=== PATIENT | female | born 1955 | race Two or more races ===

== ENCOUNTER 2024-07-29 08:43 | Inpatient (IN) | payer MEDICARE, OTHER ==
[~2024-07-29] VITALS: Ht 160 cm; Wt 78.2 kg
--- NOTE | 2024-07-29 09:05 | ED.PDOC ---
History of Present Illness HPI Comments 69-year-old female came to the ER stating that she has been having diarrhea since yesterday with vomiting which started this morning. Patient states that diarrhea is dark colored. Blood pressure on arrival was 95/55. Patient on July 23 fell landing on her back hitting her head. Never seen a physician f or the fall. She is having back pain since she had the fall. She does not take any nonsteroidal anti-inflammatory medication. Dark stool he has incidental. History of hypertension diabetes. Denies any other symptoms. Time Seen by MD: 08:55 Reviewed Notes: Nurses Notes, Medications, Allergies Allergies: Coded Allergies: NO KNOWN ALLERGIES (Unverified , 07/29/24) Information Source: Patient Mode of Arrival: Ambulatory Severity: Moderate Past Medical History PAST MEDICAL HISTORY: DM, HTN Surgical History: Denies all surgeries JOCKEY'S AGENT History: No Pertinent JOCKEY'S AGENT History Social History Smoker: Non-Smoker Alcohol: Denies ETOH Use Drugs: Denies Drug Use Constitutional: denies: chills, diaphoresis, fatigue, fever, malaise, sweats, weakness, others EENTM: denies: blurred vision, double vision, ear bleeding, ear discharge, ear drainage, ear pain, ear ringing, eye pain, eye redness, hearing loss, mouth pain, mouth swelling, nasal discharge, nose bleeding, nose congestion, nose pain, photophobia, tearing, throat pain, throat swelling, voice changes, others Respiratory: denies: cough, hemoptysis, orthopnea, SOB at rest, shortness of breath, SOB with excertion, stridor, wheezing, others Cardiovascular: denies: chest pain, dizzy spells, diaphoresis, Dyspnea on exertion, edema, irregular heart beat, left arm pain, lightheadedness, palpitations, PND, syncope, others Gastrointestinal: reports: diarrhea, nausea, vomiting; denies: abdomen distende d, abdominal pain, blood streaked bowels, constipated, dysphagia, difficulty swallowing, hematemesis, melena, poor appetite, poor fluid intake, rectal bleeding, rectal pain, others Genitourinary: denies: abnormal vagina bleeding, burning, dyspareunia, dysuria, flank pain, frequency, hematuria, incontinence, pain, , vagina discharge, urgency, others Neurological: denies: dizziness, fainting, headache, left sided numbness, left sided weakness, numbness, paresthesia, pre-existing deficit, right sided numbness, right sided weakness, seizure, speech problems, tingling, tremors, weakness, others Musculoskeletal: denies: back pain, gout, joint pain, joint swelling, muscle pain, muscle stiffness, neck pain, others Integumetry: denies: bruises, change in color, change in hair/nails, dryness, laceration, lesions, lumps, rash, wounds, others Hematologic/Lymphatic: denies: anemia, blood clots, easy bleeding, easy bruising, swollen glands, others Endocrine: denies: excessive hunger, excessive sweating, excessive thirst, excessive urination, flushing, intolerance to cold, intolerance to heat, unexplained weight gain, unexplained weight loss, others Psychiatric: denies: anxiety, bipolar disorder, depression, hopeless, panic disorder, schizophrenia, sleepless, suicidal, others Physical Exam General Appearance: Moderate Distress HEENT: Normal ENT Inspection, Pharynx Normal, TMs Normal Neck: Full Range of Motion, Non-Tender, Normal, Normal Inspection Respiratory: Chest Non-Tender, Lungs Clear, No Accessory Muscle Use, No R espiratory Distress, Normal Breath Sounds Cardiovascular: No Edema, No JVD, No Murmur, No Gallop, Normal Peripheral Pulses, Regular Rate/Rhythm Breast Exam: Deferred Gastrointestinal: No Organomegaly, Non Tender, No Pulsatile Mass, Normal Bowel Sounds, Soft Genitalia: Deferred Pelvic: Deferred Rectal: Deferred Extremities: No calf tenderness, Normal capillary refill, Normal inspection, Normal range of motion, Non-tender, No pedal edema Musculoskeletal : Apperance: Normal Neurologic: Alert, extrusion supervisor II-XII nml as Tested, No Motor Deficits, Normal Affect, Normal Mood, No Sensory Deficits Cerebellar Function: Normal Reflexes: Normal Skin: Dry, Normal Color, Warm Peripheral Pulses: 3+ Radial (R), 3+ Radial (L) Lymphatic: No Adenopathy Was a procedure done? Was a procedure done?: No Differential Dx Considerations may include: Gastroenteritis Electrolyte imbalance X-Ray, Labs, Meds, VS Vital Signs Date Time Temp Pulse Resp B/P (MAP) Pulse Ox O2 Delivery O2 Flow Rate FiO2 07/29/24 12:00 68 16 105/48 (67) 97 07/29/24 11:00 67 19 106/43 (64) 97 07/29/24 09:31 96 19 112/55 (74) 97 07/29/24 08:53 97.2 91 16 95/55 (68) 97 Lab Test 07/29/24 09:13 07/29/24 08:56 Range/Units White Blood Count 5.9 4.4-10.8 10^3/uL Red Blood Count 3.44 L 4.0-5.20 10^6/uL Hemoglobin 11.2 L 12.2-16.2 g/dL Hematocrit 32.3 L 36.0-46.0 % Mean Corpuscular Volume 93.9 80.0-100.0 fL Mean Corpuscular Hemoglobin 32.4 H 28.0-32.0 pg Mean Corpuscular Hemoglobin Concent 34.5 32.0-36.0 g/dL Red Cell Distribution Width 13.9 11.8-14.3 % Platelet Count 210 140-450 10^3/uL Mean Platelet Volume 8.9 6.9-10.8 fL Neutrophils (%) (Auto) 84.3 H 37.0-80.0 % Lymphocytes (%) (Auto) 10.7 10.0-50.0 % Monocytes (%) (Auto) 4.7 0.0-12.0 % Eosinophils (%) (Auto) 0.1 0.0-7.0 % Basophils (%) (Auto) 0.2 0.0-2.0 % Neutrophils # (Auto) 5.0 1.6-8.6 10 ^3/uL Lymphocytes # (Auto) 0.6 0.4-5.4 10 ^3/uL Monocytes # (Auto) 0.3 0-1.3 10 ^3/uL Eosinophils # (Auto) 0 0-0.8 10 ^3/uL Basophils # (Auto) 0 0-0.2 10 ^3/uL Nucleated Red Blood Cells 0.0 % Sodium Level 137 136-145 mmol/L Potassium Level 4.0 3.5-5.1 mmol/L Chloride Level 103 98-107 mmol/L Carbon Dioxide Level 28 20-31 mmol/L Anion Gap 6 5-15 Blood Urea Nitrogen 30 H 9-23 mg/dL Creatinine 0.74 0.550-1.02 mg/dL Glomerular Filtration Rate Calc 86 >90 mL/min BUN/Creatinine Ratio 40.5 H 10.0-20.0 Serum Glucose 229 H 74-106 mg/dL Calcium Level 9.0 8.7-10.4 mg/dL Urine Color Light-yellow Yellow Urine Clarity Clear Clear Urine pH 5.5 5.0-9.0 Urine Specific [place] 1.025 1.001-1.035 Urine Protein Negative Negative Urine Ketones Negative Negative Urine Blood Trace H Negative /uL Urine Nitrite Negative Negative Urine Bilirubin Negative Negative Urine Urobilinogen Normal Negative mg/dL Urine Leukocyte Esterase Negative Negative /uL Urine RBC 1 0 - 4 /hpf Urine WBC 1 0 - 5 /hpf Urine Squamous Epithelial Cells Few <5 /hpf Urine Bacteria None seen None Seen /hpf Urine Mucus Few None Seen Urine Glucose Normal Normal mg/dL Current Medications Medications (Trade) Dose Ordered Sig/Heri Route Start Time Stop Time Status Last Admin Sodium Chloride 1,000 ml @ 1,000 mls/hr Q1H ONCE IV 07/29/24 09:15 07/29/24 10:14 DC 07/29/24 10:08 Ondansetron HCl (Zofran) 4 mg ONCE ONCE IV 07/29/24 09:15 07/29/24 09:16 DC 07/29/24 09:15 Patient alert. Complaining of diarrhea vomiting. Vitals stable. Answering all questions. Blood pressure on the low side. Establish intravenous access. Was given fluids. Reviewed her history. Explained to the patient. Continue cardiac monitoring. Time of 1ST Reevaluation: 09:03 Reevaluation 1ST: Unchanged Patient Education/Counseling: Diagnosis, Treatment, Prognosis Family Education/Counseling: No Family Present Departure 1 Departure Time of Disposition: 09:04 Impression: Primary Impression: GI bleed Qualified Codes: K92.2 - Gastrointestinal hemorrhage, unspecified Additional Impressions: Gastroenteritis Hypotension Qualified Codes: I95.9 - Hypotension, unspecified Disposition: 09 ADMITTED INPATIENT Admit to: Med Surg Condition: Guarded Critical Care Note Critical Care Time?: Yes (45 min-critical care time only) Stability Stability form required: No Heart Score Heart Score: Heart Score Response (Comments) Value History N/A 0 EKG N/A 0 Age N/A 0 Risk Factors N/A 0 Troponin N/A 0 Total 0 AYLA YEPEZ MD Jul 29, 2024 09:05
[2024-07-29] MEDS: ONDANSETRON HCL 4 MG/2 ML VIAL IV ONE (09:15)
[2024-07-29 09:39] LABS: Basophils # (auto) 0 10 ^3/uL (0-0.2); Basophils % (auto) 0.2 % (0.0-2.0); Eosinophils # (auto) 0 10 ^3/uL (0-0.8); Eosinophils % (auto) 0.1 % (0.0-7.0); Hematocrit 32.3 % (36.0-46.0); Hemoglobin 11.2 g/dL (12.2-16.2); Lymphocytes # (auto) 0.6 10 ^3/uL (0.4-5.4); Lymphocytes % (auto) 10.7 % (10.0-50.0); Mean Corpuscular Hemoglobin 32.4 pg (28.0-32.0); Mean Corpuscular Hgb Conc. 34.5 g/dL (32.0-36.0); Mean Corpuscular Volume 93.9 fL (80.0-100.0); Monocytes # (auto) 0.3 10 ^3/uL (0-1.3); Monocytes % (auto) 4.7 % (0.0-12.0); Neutrophils % (auto) 84.3 % (37.0-80.0); Platelet Count (auto) 210 10^3/uL (140-450); Red Blood Cells 3.44 10^6/uL (4.0-5.20); Red Cell Distribution Width 13.9 % (11.8-14.3); White Blood Cell 5.9 10^3/uL (4.4-10.8)
--- NOTE | 2024-07-29 10:07 | DVH ---
CLINICAL INFORMATION: 69 years old, Female; fall. TECHNIQUE: Axial imaging was obtained through the brain without contrast. Coronal and sagittal refor matted images were obtained, reviewed, and stored. Images were reviewed in brain and bone windows. A ll CT scans at this medical facility are performed using dose modulation techniques as appropriate to a performed exam including the following: Automated exposure control was utilized; adjustment of the MA and/or KV according to patient size; and use of iterative reconstruction technique. CTDIvol = 53.78 mGy DLP = 971.44 mGy-cm COMPARISON: None FINDINGS: There is no acute intracranial hemorrhage or extraaxial fluid collection. No mass effect o r midline shift. Partially empty sella incidentally noted The ventricles and sulci are within normal limits in size for age. Basal cisterns are patent. The calvarium is unremarkable. Paranasal sinu ses and mastoid air cells are clear. IMPRESSION: No CT evidence of acute intracranial abnormality.
[2024-07-29] MEDS: SODIUM CHLORIDE 0.9% 1,000 ML IV ONE (10:08)
[2024-07-29 10:10] LABS: Chloride 103 mmol/L (98-107); Sodium 137 mmol/L (136-145)
[2024-07-29 10:11] LABS: Anion Gap 6 (5-15); Carbon Dioxide 28 mmol/L (20-31)
[2024-07-29 10:17] LABS: BUN/Creatinine Ratio 40.5 (10.0-20.0)
[2024-07-29 10:27] LABS: Blood Urea Nitrogen 30 mg/dL (9-23); Glucose 229 mg/dL (74-106)
[2024-07-29 11:19] LABS: Urine Bacteria None Seen /hpf (None Seen)
[2024-07-29 11:55] LABS: Urine Blood TRACE /uL (Negative); Urine Clarity Clear (Clear); Urine Color Light-Yellow (Yellow); Urine Mucus FEW (None Seen); Urine Protein, UAD Negative (Negative); Urine Specific Gravity 1.025 (1.001-1.035); Urine Squamous Epithelial Cell FEW /hpf (<5); Urine Urobilinogen Normal (Negative); Urine WBC 1 /hpf (0 - 5); Urine pH 5.5 (5.0-9.0)
--- NOTE | 2024-07-29 13:34 | DVHHP2 ---
Admitting Diagnosis: Diarrhea and vomiting History of Present Illness 69 yo female patient with hx of HTN and DM c/o dark colored diarrhea and vomiting x 2 days. Patient also reports that on 07/23 she had a fall in which she fell landing onto her back and hitting her head but was not seen for it. Patient is having back pain. While in the emergency department the patient was evaluated by the provider, As per provider: Labs, vital signs, and imagining monitored. Patient will be admitted for further evaluation and treatment. I discussed admission with the patient/family and is in agreement to treatment plan. Allergies: Coded Allergies: NO KNOWN ALLERGIES (Unverified , 07/29/24) Current Medications Current Medications Medications (Trade) Dose Ordered Sig/Heri Route PRN Reason Start Time Stop Time Status Last Admin Sodium Chloride 1,000 ml @ 60 mls/hr [id number] IV 07/29/24 13:45 07/29/24 15:21 Acetaminophen/ Hydrocodone Bitart ([place] 5/325MG Tab) 1 tab Q4HP PRN PO MODERATE PAIN (4-6 PAIN SCALE) 07/29/24 13:45 Ondansetron HCl (Zofran) 4 mg Q4HP PRN IV NAUSEA / VOMITING 07/29/24 13:45 Acetaminophen (Tylenol Tablet) 650 mg Q6HP PRN PO PAIN SCALE 1-3 OR TEMP>100.4 07/29/24 13:45 07/29/24 23:43 Pantoprazole Sodium (Protonix) 40 mg DAILY IV 07/29/24 13:45 07/29/24 17:09 DC 07/29/24 15:21 Nitroglycerin (Ntrostat Sublingual) 0.4 mg Q5MINP PRN SL FOR CHEST PAIN 07/29/24 13:45 Morphine Sulfate 2 mg Q30M PRN IV FOR CHEST PAIN 07/29/24 13:45 Diagnostic Test (Pha) (Accu-Chek Comfort Curve T) 1 strip ACHS 07/29/24 17:00 07/29/24 17:00 Insulin Human Regular (InsuLIN R) ACHS SC 07/29/24 17:00 Dextrose 50 ml UD PRN IV Blood Sugar LESS THAN 60 07/29/24 13:45 Pantoprazole Sodium (Protonix) 40 mg BID IV 07/29/24 22:00 Review of Systems Constitutional: denies chills, denies fever, denies malaise Eyes: denies eye pain, denies vision change ENT: denies ear pain, denies headache, denies nasal congestion, denies painful swallowing, denies voice change Cardiovascular: denies chest pain, denies edema, denies orthopnea, denies palpitations, denies paroxysmal nocturnal dyspnea Respiratory: denies cough, denies shortness of breath Gastrointestinal: denies constipation, denies diarrhea, denies nausea, denies vomiting Genitourinary: denies dysuria, denies frequent urination, denies urethral discharge Musculoskeletal: denies back pain, denies joint pain, denies muscle pain Skin: denies bruising, denies itching, denies rash Neurological: denies focal weakness, denies headache, denies sensory changes Psychiatric: denies anxiety, denies depression Endocrine: denies polydipsia, denies polyuria Hematologic/Lymphatic: denies easy bleeding, denies easy bruising, denies enlarged lymph nodes Allergic/Immunologic: denies allergy, denies hives Vital Signs Vital Signs Date Time Temp Pulse Resp B/P (MAP) Pulse Ox O2 Delivery O2 Flow Rate FiO2 07/29/24 23:43 100.6 07/29/24 20:00 92 20 94 Room Air* 0 21 07/29/24 16:00 121/42 (68) Physical Exam General Appearance: alert, no distress HEENT: EOMI, PERRLA, normal external inspect of ears, no icterus, no nasal drainage Neck: no carotid bruit, no jugular venous distention (JVD), no lymphadenopathy Chest: normal thorax Respiratory: clear to auscultation, normal air movement Cardiovascular: regular rate and rhythm, no diastolic murmur, no jugular venous distention (JVD), no rub, no systolic murmur Abdominal: soft, no hepatomegaly, no mass, no splenomegaly, no tenderness Genitourinary: grossly normal external Musculoskeletal: no joint tenderness, no swelling Extremities: normal pulses, no calf tenderness, no clubbing, no cyanosis, no edema Skin: no bruising, no jaundice, no rash Neurological: alert, No focal deficit Results Labs Test 07/29/24 18:08 07/29/24 09:13 07/29/24 08:56 Range/Units POC Glucose 114 H 70-106 mg/dl White Blood Count 5.9 4.4-10.8 10^3/uL Red Blood Count 3.44 L 4.0-5.20 10^6/uL Hemoglobin 11.2 L 12.2-16.2 g/dL Hematocrit 32.3 L 36.0-46.0 % Mean Corpuscular Volume 93.9 80.0-100.0 fL Mean Corpuscular Hemoglobin 32.4 H 28.0-32.0 pg Mean Corpuscular Hemoglobin Concent 34.5 32.0-36.0 g/dL Red Cell Distribution Width 13.9 11.8-14.3 % Platelet Count 210 140-450 10^3/uL Mean Platelet Volume 8.9 6.9-10.8 fL Neutrophils (%) (Auto) 84.3 H 37.0-80.0 % Lymphocytes (%) (Auto) 10.7 10.0-50.0 % Monocytes (%) (Auto) 4.7 0.0-12.0 % Eosinophils (%) (Auto) 0.1 0.0-7.0 % Basophils (%) (Auto) 0.2 0.0-2.0 % Neutrophils # (Auto) 5.0 1.6-8.6 10 ^3/uL Lymphocytes # (Auto) 0.6 0.4-5.4 10 ^3/uL Monocytes # (Auto) 0.3 0-1.3 10 ^3/uL Eosinophils # (Auto) 0 0-0.8 10 ^3/uL Basophils # (Auto) 0 0-0.2 10 ^3/uL Nucleated Red Blood Cells 0.0 % Sodium Level 137 136-145 mmol/L Potassium Level 4.0 3.5-5.1 mmol/L Chloride Level 103 98-107 mmol/L Carbon Dioxide Level 28 20-31 mmol/L Anion Gap 6 5-15 Blood Urea Nitrogen 30 H 9-23 mg/dL Creatinine 0.74 0.550-1.02 mg/dL Glomerular Filtration Rate Calc 86 >90 mL/min BUN/Creatinine Ratio 40.5 H 10.0-20.0 Serum Glucose 229 H 74-106 mg/dL Calcium Level 9.0 8.7-10.4 mg/dL Urine Color Light-yellow Yellow Urine Clarity Clear Clear Urine pH 5.5 5.0-9.0 Urine Specific [place] 1.025 1.001-1.035 Urine Protein Negative Negative Urine Ketones Negative Negative Urine Blood Trace H Negative /uL Urine Nitrite Negative Negative Urine Bilirubin Negative Negative Urine Urobilinogen Normal Negative mg/dL Urine Leukocyte Esterase Negative Negative /uL Urine RBC 1 0 - 4 /hpf Urine WBC 1 0 - 5 /hpf Urine Squamous Epithelial Cells Few <5 /hpf Urine Bacteria None seen None Seen /hpf Urine Mucus Few None Seen Urine Glucose Normal Normal mg/dL Plan 1. GI bleed Monitor, GI consult, send stool for OB, clear liwuid diet 2. Gastroenteritis Monitor, IV fluids, PPI 3. Hypotension Monitor, IV fluids 4. DM II & Hyperglycemia Monitor, insulin ss Plan discussed with: Patient, Other BLANCA BAE NP Jul 29, 2024 13:34
[2024-07-29] MEDS ORDERED: NITROGLYCERIN 0.4 MG SL TAB SL PRN (13:45)
[2024-07-29] MEDS ORDERED: DEXTROSE (50%) 50ML SYRG IV PRN (13:45)
[2024-07-29] MEDS ORDERED: MORPHINE SULFATE INJ 2 MG/ml SYRG IV PRN (13:45)
[2024-07-29] MEDS ORDERED: HYDROcodone-ACET 5/325MG TAB PO PRN (13:45)
[2024-07-29] MEDS ORDERED: ONDANSETRON HCL 4 MG/2 ML VIAL IV PRN (13:45)
[2024-07-29] MEDS: SODIUM CHLORIDE 0.9% 1,000 ML IV SCH (15:21)
[2024-07-29] MEDS: PANTOPRAZOLE 40 MG/10 ML VIAL INJ IV SCH ×2 (15:21→22:00)
--- NOTE | 2024-07-29 16:25 | DVHCONRES ---
Date Seen: Jul 29, 2024 Resident Creating Document: BETSY WAGNER RESIDENT Referring Physician Nidia Lara NP History of Present Illness GI CONSULT This is a 69-year-old female with a past medical history of hypertension, diabetes, hyperlipidemia and right DVT presented to the ED with a history of dark stool of since this morning. According to the patient, 5 days ago ( on 07/25/2024), she had a fall after she tripped on her slippers. She hit her head oh the floor and her left ribs on a nearby table. Patient did not seek medical help. Yesterday, patient started having diarrhea which was of normal color initially but later turned dark. She had about 15 bowel movements. Without much improvement she took Pepto-Bismol. She had 5 bowel movement after taking the Pepto-Bismol. The stool were black in color. Patient also mentioned having vomited over one liter in volume. the vomitus was dark red mixed with the gastric content. Patient completed anticoagulant medication 3 months ago for dvt. Her current medication includes baby aspirin, metoprolol, losartan, atorvastatin and metformin. Per patient, this is the 1st episode of dark stool. She denies any fatigue, dizziness, or vomiting any bright red blood. In the ED initial vitals revealed temperature of 97.2, BP: 95/55, pulse 96, RR: 16 and on RA. Initial blood work shows wbc: 5.2, Hgb: 11.2, plt: 210 Past Medical History Diabetes mellitus type 2 Hypertension Hyperlipidemia Obesity Past Surgical History None, Family History Noncontributory Social History No smoking, drinking or use of illicit drugs FAMILY RESOURCE MANAGEMENT PROFESSOR History: No Pertinent FAMILY RESOURCE MANAGEMENT PROFESSOR History Allergies: Coded Allergies: NO KNOWN ALLERGIES (Unverified , 07/29/24) Current Medications Current Medications Medications (Trade) Dose Ordered Sig/Heri Route PRN Reason Start Time Stop Time Status Last Admin Sodium Chloride 1,000 ml @ 60 mls/hr [id number] IV 07/29/24 13:45 07/29/24 15:21 Acetaminophen/ Hydrocodone Bitart ([place] 5/325MG Tab) 1 tab Q4HP PRN PO MODERATE PAIN (4-6 PAIN SCALE) 07/29/24 13:45 Ondansetron HCl (Zofran) 4 mg Q4HP PRN IV NAUSEA / VOMITING 07/29/24 13:45 Acetaminophen (Tylenol Tablet) 650 mg Q6HP PRN PO PAIN SCALE 1-3 OR TEMP>100.4 07/29/24 13:45 Pantoprazole Sodium (Protonix) 40 mg DAILY IV 07/29/24 13:45 07/29/24 15:21 Nitroglycerin (Ntrostat Sublingual) 0.4 mg Q5MINP PRN SL FOR CHEST PAIN 07/29/24 13:45 Morphine Sulfate 2 mg Q30M PRN IV FOR CHEST PAIN 07/29/24 13:45 Diagnostic Test (Pha) (Accu-Chek Comfort Curve T) 1 strip ACHS 07/29/24 17:00 Insulin Human Regular (InsuLIN R) ACHS SC 07/29/24 17:00 Dextrose 50 ml UD PRN IV Blood Sugar LESS THAN 60 07/29/24 13:45 Review of Systems Constitutional: Denies fever no chills no feeling of malaise; left side and back pain from the fall HEENT:headache, No ear pain, ear discharges, conjunctivitis, nasal discharge throat pain Cardiovascular: Denies chest pain, palpitation, orthopnea, PND, or pedal edema Respiratory: Denies shortness of breath, cough, sputum production, hemoptysis, GI: Denies abdominal pain, nausea, vomiting, hematemesis, hematochezia; dark stool diarrheal resolved : Denies frequency, urgency, hematuria, Endocrine: Denies unintentional weight gain or weight loss, feeling of hot flashes, Ino: Denies easy bruising, bleeding disorders, epistaxis Musculoskeletal: back pain, joint pains, muscle aches Psych: No evidence of depression, abdiel, suicidal ideation Vital Signs Vital Signs Date Time Temp Pulse Resp B/P (MAP) Pulse Ox O2 Delivery O2 Flow Rate FiO2 07/29/24 12:00 68 16 105/48 (67) 97 07/29/24 08:53 97.2 Physical Exam General examination---> Mild acute distress HEENT: PEERLA, no acute nasal discharge Chest: S1-S2 audible, rate and rhythm regular, no murmur Lung: CTAB, no wheeze or rhonchi Abdomen: Nondistended, BS+, nontender, no organomegaly Musculoskeletal: no acute joint swelling or tenderness Extremity: no leg edema Neurological: cranial nerves intact, no acute dysarthria or dysphagia Psychiatry-- Normal mood and affect Skin- no acute rash or purpura Labs/Diagnostic Data Labs Test 07/29/24 09:13 07/29/24 08:56 Range/Units White Blood Count 5.9 4.4-10.8 10^3/uL Red Blood Count 3.44 L 4.0-5.20 10^6/uL Hemoglobin 11.2 L 12.2-16.2 g/dL Hematocrit 32.3 L 36.0-46.0 % Mean Corpuscular Volume 93.9 80.0-100.0 fL Mean Corpuscular Hemoglobin 32.4 H 28.0-32.0 pg Mean Corpuscular Hemoglobin Concent 34.5 32.0-36.0 g/dL Red Cell Distribution Width 13.9 11.8-14.3 % Platelet Count 210 140-450 10^3/uL Mean Platelet Volume 8.9 6.9-10.8 fL Neutrophils (%) (Auto) 84.3 H 37.0-80.0 % Lymphocytes (%) (Auto) 10.7 10.0-50.0 % Monocytes (%) (Auto) 4.7 0.0-12.0 % Eosinophils (%) (Auto) 0.1 0.0-7.0 % Basophils (%) (Auto) 0.2 0.0-2.0 % Neutrophils # (Auto) 5.0 1.6-8.6 10 ^3/uL Lymphocytes # (Auto) 0.6 0.4-5.4 10 ^3/uL Monocytes # (Auto) 0.3 0-1.3 10 ^3/uL Eosinophils # (Auto) 0 0-0.8 10 ^3/uL Basophils # (Auto) 0 0-0.2 10 ^3/uL Nucleated Red Blood Cells 0.0 % Sodium Level 137 136-145 mmol/L Potassium Level 4.0 3.5-5.1 mmol/L Chloride Level 103 98-107 mmol/L Carbon Dioxide Level 28 20-31 mmol/L Anion Gap 6 5-15 Blood Urea Nitrogen 30 H 9-23 mg/dL Creatinine 0.74 0.550-1.02 mg/dL Glomerular Filtration Rate Calc 86 >90 mL/min BUN/Creatinine Ratio 40.5 H 10.0-20.0 Serum Glucose 229 H 74-106 mg/dL Calcium Level 9.0 8.7-10.4 mg/dL Urine Color Light-yellow Yellow Urine Clarity Clear Clear Urine pH 5.5 5.0-9.0 Urine Specific [place] 1.025 1.001-1.035 Urine Protein Negative Negative Urine Ketones Negative Negative Urine Blood Trace H Negative /uL Urine Nitrite Negative Negative Urine Bilirubin Negative Negative Urine Urobilinogen Normal Negative mg/dL Urine Leukocyte Esterase Negative Negative /uL Urine RBC 1 0 - 4 /hpf Urine WBC 1 0 - 5 /hpf Urine Squamous Epithelial Cells Few <5 /hpf Urine Bacteria None seen None Seen /hpf Urine Mucus Few None Seen Urine Glucose Normal Normal mg/dL Assessment Anemia rule out GI bleed --> Hgb: 11.2/ Hct: 32.3, MCV: 93.2 --> Repeat CBC/CMP in the AM --> SOBT --> Stool WBC --> Stop Aspirin ---> Protonix 40 mg bid Diarrhea --> 20 bowel movement prior to admission --> Stool bacteria Hypotension likely secondary to diarrhea --> BP on adimission: 95/55 --> cr: 0.74 --> IV 60ml/hr Diabetes mellitus type II --> Hgb A1c pending --> Serum 299 --> Sliding scale Hypertension --> Metoprolol --> If BP?> 170 give hydralazine Hyperlipidemia --> Continue atorvastatin Goal of care discussed for more than 40 minutes Case and plan discussed with Dr. Jaqueline Larose Thank you for allowing us to participate in the care of this patient. Please call if you have any questions or concerns. Plan discussed with: Patient, Spouse, Son BETSY WAGNER RESIDENT Jul 29, 2024 16:25
[2024-07-29] MEDS: InsuLIN REG 1unit/0.01ml Soln (100units/ml) SC SCH (17:00)
[2024-07-29] MEDS: ACCU-CHEK COMFORT CURVE STRIP VI SCH (17:00)
[2024-07-29 20:00] VITALS: PULSE 92; RESP 20; O2SAT 94
[2024-07-29 21:00] VITALS: BP 105/49; PULSE 84; RESP 16; TEMP 100.6; O2SAT 94
[2024-07-29 22:37] VITALS: BP 105/49; PULSE 84; RESP 16; TEMP 100.6; O2SAT 94
[2024-07-29] MEDS: ACETAMINOPHEN 325 MG TAB PO PRN (23:43)
[2024-07-30] VITALS (8 sets, daily range): BP systolic 105–129; BP diastolic 46–57; PULSE 67–93; RESP 16–20; TEMP 98.1–100.6; O2SAT 94–100
[2024-07-30] MEDS ORDERED: ATOR-507 PO (03:31)
[2024-07-30] MEDS ORDERED: ASPI-543 PO (03:31)
[2024-07-30] MEDS ORDERED: LOSA-534 PO (03:31)
[2024-07-30] MEDS ORDERED: METF-370 PO (03:31)
[2024-07-30] MEDS ORDERED: METO25TA5 PO (03:31)
[2024-07-30 06:31] LABS: Basophils # (auto) 0 10 ^3/uL (0-0.2); Basophils % (auto) 0.1 % (0.0-2.0); Eosinophils # (auto) 0 10 ^3/uL (0-0.8); Eosinophils % (auto) 0.2 % (0.0-7.0); Hematocrit 26.6 % (36.0-46.0); Hemoglobin 9.1 g/dL (12.2-16.2); Lymphocytes # (auto) 1.4 10 ^3/uL (0.4-5.4); Lymphocytes % (auto) 23.2 % (10.0-50.0); Mean Corpuscular Hemoglobin 32.4 pg (28.0-32.0); Mean Corpuscular Hgb Conc. 34.2 g/dL (32.0-36.0); Mean Corpuscular Volume 94.5 fL (80.0-100.0); Monocytes # (auto) 0.4 10 ^3/uL (0-1.3); Monocytes % (auto) 6.1 % (0.0-12.0); Neutrophils # (auto) 4.3 10 ^3/uL (1.6-8.6); Neutrophils % (auto) 70.4 % (37.0-80.0); Nucleated Red Blood Cells % 0.1 %; Platelet Count (auto) 161 10^3/uL (140-450); Red Blood Cells 2.81 10^6/uL (4.0-5.20); Red Cell Distribution Width 14.1 % (11.8-14.3); White Blood Cell 6.1 10^3/uL (4.4-10.8)
[2024-07-30 07:04] LABS: Alanine Aminotransferase 16 U/L (7-40); Alkaline Phosphatase 51 U/L (46-116); Anion Gap 6 (5-15); BUN/Creatinine Ratio 15.6 (10.0-20.0); Blood Urea Nitrogen 10 mg/dL (9-23); Calcium 8.9 mg/dL (8.7-10.4); Carbon Dioxide 28 mmol/L (20-31); Glucose 105 mg/dL (74-106); Potassium 3.8 mmol/L (3.5-5.1); Sodium 142 mmol/L (136-145)
[2024-07-30 07:05] LABS: Albumin 3.6 g/dL (3.2-4.8); Aspartate Aminotransferase 17 U/L (13-40); Bilirubin, Total 0.7 mg/dL (0.2-1.0)
[2024-07-30 07:29] LABS: Chloride 108 mmol/L (98-107); Total Protein 5.4 g/dL (5.7-8.2)
--- NOTE | 2024-07-30 11:19 | DVHPN2 ---
Progress Note - Dictate Date Seen: Jul 30, 2024 Medical Necessity Reason Pt with a Central, PICC or Fol: No vital signs Vital Sign Date Time Temp Pulse Resp B/P (MAP) Pulse Ox O2 Delivery O2 Flow Rate FiO2 07/30/24 09:00 98.7 80 17 128/53 (78) 100 98.7 07/29/24 22:37 Room Air* 0 21 Total Intake and Output 07/29/24 07/29/24 07/30/24 15:00 23:00 07:00 Intake Total 200 ml Output Total 2 ml Balance 198 ml medications Current Medications Medications Dose Ordered Sig/Heri Route Start Time Stop Time Status Last Admin Dose Admin Sodium Chloride 1,000 ml @ 60 mls/hr [id number] IV 07/29/24 13:45 07/30/24 06:45 60 MLS/HR Acetaminophen/ Hydrocodone Bitart 1 tab Q4HP PRN PO 07/29/24 13:45 Ondansetron HCl 4 mg Q4HP PRN IV 07/29/24 13:45 Acetaminophen 650 mg Q6HP PRN PO 07/29/24 13:45 07/29/24 23:43 650 MG Nitroglycerin 0.4 mg Q5MINP PRN SL 07/29/24 13:45 Morphine Sulfate 2 mg Q30M PRN IV 07/29/24 13:45 Diagnostic Test (Pha) 1 strip ACHS 07/29/24 17:00 07/30/24 06:30 1 STRIP Insulin Human Regular ACHS SC 07/29/24 17:00 Dextrose 50 ml UD PRN IV 07/29/24 13:45 Pantoprazole Sodium 40 mg BID IV 07/29/24 22:00 07/30/24 09:43 40 MG objective General Appearance: alert, no distress HEENT: EOMI, PERRLA, normal external inspect of ears, no icterus, no nasal drainage Neck: no carotid bruit, no jugular venous distention (JVD), no lymphadenopathy Chest: normal thorax Respiratory: clear to auscultation, normal air movement Cardiovascular: regular rate and rhythm, no diastolic murmur, no jugular venous distention (JVD), no rub, no systolic murmur Abdominal: soft, no hepatomegaly, no mass, no splenomegaly, no tenderness Genitourinary: grossly normal external Musculoskeletal: no joint tenderness, no swelling Extremities: normal pulses, no calf tenderness, no clubbing, no cyanosis, no edema Skin: no bruising, no jaundice, no rash Neurological: alert, No focal deficit laboratory and microbiology Laboratory Tests 07/30/24 05:00 Test 07/30/24 05:00 Range/Units Serum Glucose 105 74-106 mg/dL Problem List 1. GI bleed Monitor, GI consult, send stool for OB, clear liwuid diet 2. Gastroenteritis Monitor, IV fluids, PPI 3. Hypotension Monitor, IV fluids 4. DM II & Hyperglycemia Monitor, insulin ss Assessment/Plan Subjective: Patient is awake and alert. Objective: I spoke with patient and patient's son and at bedside. Patient was admitted for GI bleed. Patient had approximately 17 episodes of diarrhea yesterday. Patient admits to taking Pepto-Bismol which could have contributed to her dark tarry stools. However patient's hemoglobin has now dropped 2 points. Patient was seen by GI. Plan: Continue clear liquid diet. Patient may advance diet if okay with GI. Repeat labs ordered for a.m. Plan discussed with: Patient, Other BLANCA BAE NP Jul 30, 2024 11:19
[2024-07-30 14:18] LABS: % Iron Saturation 6.7 % (15-50)
--- NOTE | 2024-07-30 17:15 | DVHPN2 ---
Progress Note - Dictate Date Seen: Jul 30, 2024 Medical Necessity Reason Pt with a Central, PICC or Fol: No Subjective No new complaints , patient is tolerating a clear liquid diet There is no further bowel movement recorded A small stool sample was sent and it was positive for stool for occult blood but negative for WBC Hemoglobin dropped down to 9.1 vital signs Vital Sign Date Time Temp Pulse Resp B/P (MAP) Pulse Ox O2 Delivery O2 Flow Rate FiO2 07/30/24 13:00 98.4 73 17 125/46 (72) 97 98.4 07/29/24 22:37 Room Air* 0 21 Total Intake and Output 07/29/24 07/29/24 07/30/24 15:00 23:00 07:00 Intake Total 200 ml Output Total 2 ml Balance 198 ml medications Current Medications Medications Dose Ordered Sig/Heri Route Start Time Stop Time Status Last Admin Dose Admin Sodium Chloride 1,000 ml @ 60 mls/hr [id number] IV 07/29/24 13:45 07/30/24 06:45 60 MLS/HR Acetaminophen/ Hydrocodone Bitart 1 tab Q4HP PRN PO 07/29/24 13:45 Ondansetron HCl 4 mg Q4HP PRN IV 07/29/24 13:45 Acetaminophen 650 mg Q6HP PRN PO 07/29/24 13:45 07/29/24 23:43 650 MG Nitroglycerin 0.4 mg Q5MINP PRN SL 07/29/24 13:45 Morphine Sulfate 2 mg Q30M PRN IV 07/29/24 13:45 Diagnostic Test (Pha) 1 strip ACHS 07/29/24 17:00 07/30/24 11:30 1 STRIP Insulin Human Regular ACHS SC 07/29/24 17:00 Dextrose 50 ml UD PRN IV 07/29/24 13:45 Pantoprazole Sodium 40 mg BID IV 07/29/24 22:00 07/30/24 09:43 40 MG objective Hemodynamically stable today No localizing signs Full physical examination deferred laboratory and microbiology Laboratory Tests 07/30/24 05:00 Test 07/30/24 05:00 Range/Units Serum Glucose 105 74-106 mg/dL Problems(with codes): (1) GI bleed (2) Hypotension (3) Gastroenteritis (4) Positive occult stool blood test (5) Melena Prognosis Plan NPO after midnight I will schedule this patient for an upper endoscopy with possible biopsy possible control of bleeding in a.m. Monitor labs Stool for WBCs negative which points against inflammatory enteritis Plan discussed with: Other (Nurse) DIPIKA ROLON MD Jul 30, 2024 17:15
[2024-07-31] VITALS (7 sets, daily range): BP systolic 133–147; BP diastolic 45–57; PULSE 62–72; RESP 16–20; TEMP 97.8–99.3; O2SAT 93–100
--- NOTE | 2024-07-31 06:00 | DVH ---
CHEST RADIOGRAPH Indication: surgery Technique: Single frontal view of the chest was obtained COMPARISON: None FINDINGS: Lines and Tubes: None Lungs: Clear Pleura: No effusion. No pneumothorax. Cardiomediastinal contours: Unremarkable Bones: Unremarkable IMPRESSION: No acute disease.
[2024-07-31 06:19] LABS: Partial Thromboplastin Time 27.6 SEC (24.5-34.5); Prothrombin Time 10.6 sec (9.3-11.8)
[2024-07-31 06:22] LABS: Basophils # (auto) 0 10 ^3/uL (0-0.2); Basophils % (auto) 0.2 % (0.0-2.0); Eosinophils # (auto) 0 10 ^3/uL (0-0.8); Eosinophils % (auto) 0.9 % (0.0-7.0); Hematocrit 28.4 % (36.0-46.0); Hemoglobin 9.6 g/dL (12.2-16.2); Lymphocytes # (auto) 1.2 10 ^3/uL (0.4-5.4); Lymphocytes % (auto) 30.8 % (10.0-50.0); Mean Corpuscular Hemoglobin 31.8 pg (28.0-32.0); Mean Corpuscular Hgb Conc. 33.8 g/dL (32.0-36.0); Mean Corpuscular Volume 94.4 fL (80.0-100.0); Monocytes # (auto) 0.3 10 ^3/uL (0-1.3); Monocytes % (auto) 6.9 % (0.0-12.0); Neutrophils # (auto) 2.4 10 ^3/uL (1.6-8.6); Neutrophils % (auto) 61.2 % (37.0-80.0); Platelet Count (auto) 180 10^3/uL (140-450); Red Blood Cells 3.01 10^6/uL (4.0-5.20); Red Cell Distribution Width 14.1 % (11.8-14.3)
[2024-07-31 06:28] LABS: Alanine Aminotransferase 18 U/L (7-40); Alkaline Phosphatase 53 U/L (46-116); Anion Gap 10 (5-15); Aspartate Aminotransferase 22 U/L (13-40); Bilirubin, Total 0.9 mg/dL (0.2-1.0); Calcium 9.5 mg/dL (8.7-10.4); Carbon Dioxide 25 mmol/L (20-31); Potassium 3.8 mmol/L (3.5-5.1); Sodium 142 mmol/L (136-145); Total Protein 6.1 g/dL (5.7-8.2)
[2024-07-31 06:32] LABS: BUN/Creatinine Ratio 8.8 (10.0-20.0); Blood Urea Nitrogen < 5 mg/dL (9-23); Chloride 107 mmol/L (98-107); Glucose 121 mg/dL (74-106)
[2024-07-31] MEDS ORDERED: SIMETHICONE 40 MG/0.6 ML ORAL DROP ONE (09:49)
[2024-07-31] MEDS ORDERED: NALOXONE HCL 0.4 MG/ML VIAL ONE (09:57)
[2024-07-31] MEDS ORDERED: SODIUM CHLORIDE LOCK 10 ML ONE (09:58)
[2024-07-31] MEDS ORDERED: FLUMAZENIL 0.1 MG/ML INJ 10ML MDV IV ONE (09:58)
[2024-07-31] MEDS: LIDOCAINE VISCOUS 2% 15ML UD ONE (10:40)
[2024-07-31] MEDS: fentaNYL CITRATE 100 MCG/2 ML VL ONE (10:45)
[2024-07-31] MEDS: MIDAZOLAM HCL 5 MG/ML-1ML VIAL ONE (10:45)
[2024-07-31] MEDS: diphenhdrAMINE HCL 50 MG/1 ML VL ONE (10:45)
--- NOTE | 2024-07-31 10:59 | DVHOP2 ---
Operative Report DATE OF OPERATION: 07/31/24 PROCEDURE: Upper Endoscopy with biopsy. PREOPERATIVE INDICATION: The patient is a 69 -year-old female undergoing endoscopy for nausea vomiting and upper GI bleed POSTOPERATIVE DIAGNOSES: 1. 2-3 cm sliding-type hiatal hernia with grade a erosive esophagitis 2. Patient had a linear healing ulcer within the hiatal hernia sac which appeared to be likely a possible Sri-Zhang tear versus a Damon's ulcer that was healing 3. [id number] antral gastritis with multiple pre-pyloric antral gastric erosions 4. Otherwise normal examination up to the 2nd and 3rd part of the duodenum with no active bleeding at this time no fresh or old blood in the stomach PROCEDURE PERFORMED BY: Dipika Larose GI NURSE: Ana SCOPE: Olympus videoendoscope. ASA CLASS: 2. PREOPERATIVE MEDICATIONS: Versed 1 mg, Fentanyl 25 mcg, Benadryl 50 mg I administered moderate sedation throughout this _8_ minutes procedure. An independent trained observer pushed medications at my direction, and monitored the patient's level of consciousness and physiological status throughout. PROCEDURE IN DETAIL: After obtaining an informed consent, the patient was placed on left lateral decubitus position. The patient was then sedated with the above medications. A bite block was placed between her teeth. The endoscope was then passed through the oropharynx, into the esophagus, and through the stomach and pylorus up to the second and third part of the duodenum. The endoscope was then withdrawn. The 2nd and 3rd part of the duodenal and the duodenal bulb were normal. Duodenal biopsies were obtained The pre-pyloric area and antrum showed [id number] gastritis with multiple pre-pyloric antral gastric erosions and tiny ulcers. On retroflexion the fundus and cardia were normal. There was no fresh or old blood in the upper GI tract. Gastric biopsies were obtained. The endoscope was then withdrawn into the distal esophagus where the patient had a two to 3 cm sliding-type hiatal hernia Patient had grade a erosive esophagitis with slightly irregular squamocolumnar junction and mild reflux noted. Within the hiatal hernia sac dose of the diaphragmatic impingement there was a linear healing ulcer with overlying eschar This was the likely source of the upper GI bleed. It was suspicious for a healing small Sri-Zhang tear versus a Damon's ulcer GE junction biopsies were obtained. The remaining distal and proximal esophagus and oropharynx were unremarkable The patient tolerated the procedure well without difficulty. COMPLICATIONS : None SPECIMENS: Duodenal biopsy Gastric biopsies GE junction biopsies DISPOSITION: Transfer back to the floor Stable PLAN: 1. Await for biopsy result 2. Will place pt on Protonix 40 mg bid 3. Carafate suspension 1 g p.o. 4 times a day 4. DC aspirin NSAIDs smoking alcohol 5. Start full liquid diet advance to soft mechanical 6. Outpatient follow up with GI to discuss outpatient elective colonoscopy DIPIKA LAROSE MD Jul 31, 2024 10:59
[2024-07-31] MEDS: SUCRALFATE 1 GM/10 ML ORAL SUSP PO SCH (11:30)
[2024-07-31] MEDS ORDERED: PANT40TA2 PO (12:07)
[2024-07-31] MEDS ORDERED: SUCR1TAB31 OR (12:07)
--- NOTE | 2024-07-31 12:10 | DVHDS2 ---
Discharge Summary Date of Admission Jul 29, 2024 at 13:31 Date of Discharge: Jul 31, 2024 Labs/Diagnostic Data: Laboratory Results Test 07/31/24 06:44 07/31/24 05:38 07/30/24 13:59 07/30/24 05:00 POC Glucose 110 mg/dl (70-106) White Blood Count 4.0 10^3/uL (4.4-10.8) Red Blood Count 3.01 10^6/uL (4.0-5.20) Hemoglobin 9.6 g/dL (12.2-16.2) Hematocrit 28.4 % (36.0-46.0) Mean Corpuscular Volume 94.4 fL (80.0-100.0) Mean Corpuscular Hemoglobin 31.8 pg (28.0-32.0) Mean Corpuscular Hemoglobin Concent 33.8 g/dL (32.0-36.0) Red Cell Distribution Width 14.1 % (11.8-14.3) Platelet Count 180 10^3/uL (140-450) Mean Platelet Volume 9.0 fL (6.9-10.8) Neutrophils (%) (Auto) 61.2 % (37.0-80.0) Lymphocytes (%) (Auto) 30.8 % (10.0-50.0) Monocytes (%) (Auto) 6.9 % (0.0-12.0) Eosinophils (%) (Auto) 0.9 % (0.0-7.0) Basophils (%) (Auto) 0.2 % (0.0-2.0) Neutrophils # (Auto) 2.4 10 ^3/uL (1.6-8.6) Lymphocytes # (Auto) 1.2 10 ^3/uL (0.4-5.4) Monocytes # (Auto) 0.3 10 ^3/uL (0-1.3) Eosinophils # (Auto) 0 10 ^3/uL (0-0.8) Basophils # (Auto) 0 10 ^3/uL (0-0.2) Nucleated Red Blood Cells 0.0 % Prothrombin Time 10.6 sec (9.3-11.8) Prothrombin Time INR 1.00 (0.9-1.15) Activated Partial Thromboplast Time 27.6 SEC (24.5-34.5) Sodium Level 142 mmol/L (136-145) Potassium Level 3.8 mmol/L (3.5-5.1) Chloride Level 107 mmol/L (98-107) Carbon Dioxide Level 25 mmol/L (20-31) Anion Gap 10 (5-15) Blood Urea Nitrogen < 5 mg/dL (9-23) Creatinine 0.57 mg/dL (0.550-1.02) Glomerular Filtration Rate Calc 97 mL/min (>90) BUN/Creatinine Ratio 8.8 (10.0-20.0) Serum Glucose 121 mg/dL (74-106) Calcium Level 9.5 mg/dL (8.7-10.4) Total Bilirubin 0.9 mg/dL (0.2-1.0) Aspartate Amino Transferase (AST) 22 U/L (13-40) Alanine Aminotransferase (ALT) 18 U/L (7-40) Alkaline Phosphatase 53 U/L (46-116) Total Protein 6.1 g/dL (5.7-8.2) Albumin 4.0 g/dL (3.2-4.8) Stool Occult Blood Positive (Negative) Stool Occult Blood Sample #3 (Negative) Stool for White Cells None seen Hemoglobin A1c 6.4 % A1C (<5.7) Iron Level 17 ug/dL (50-170) Total Iron Binding Capacity 252 ug/dL (250-425) Percent Iron Saturation 6.7 % (15-50) Vitamin B12 Level 278 pg/mL (211-911) Test 07/29/24 08:56 Urine Color Light-yellow (Yellow) Urine Clarity Clear (Clear) Urine pH 5.5 (5.0-9.0) Urine Specific [place] 1.025 (1.001-1.035) Urine Protein Negative (Negative) Urine Ketones Negative (Negative) Urine Blood Trace /uL (Negative) Urine Nitrite Negative (Negative) Urine Bilirubin Negative (Negative) Urine Urobilinogen Normal mg/dL (Negative) Urine Leukocyte Esterase Negative /uL (Negative) Urine RBC 1 /hpf (0 - 4) Urine WBC 1 /hpf (0 - 5) Urine Squamous Epithelial Cells Few /hpf (<5) Urine Bacteria None seen /hpf (None Seen) Urine Mucus Few (None Seen) Urine Glucose Normal mg/dL (Normal) Other Laboratory Tests 07/31/24 05:38 Brief Hx & Hospital Course: 69 yo female patient with hx of HTN and DM c/o dark colored diarrhea and vomiting x 2 days. Patient also reports that on 07/23 she had a fall in which she fell landing onto her back and hitting her head but was not seen for it. Patient is having back pain. Patient reports she had approximately 17 episodes of diarrhea and that she took Pepto-Bismol and then her last episode of diarrhea was black and tarry most likely from medication. Will be admitting the patient to monitor daily CBC, GI consult, hold n.p.o., and hold anticoagulation. Patient takes daily aspirin 81 mg daily. Patient was admitted on 07/29/2024 for intractable abdominal pain and diarrhea and GI bleeding. Patient does take aspirin 81 mg p.o. daily. Patient is status post EGD with biopsy. Patient was found to have a 2 to 3 cm hiatal hernia with erosive esophagitis and mild to moderate gastritis. Patient was instructed to stop aspirin and to continue Protonix twice daily and to continue Carafate 4 times a day. She will follow-up with GI outpatient and undergo elective colonoscopy outpatient. The patient received proper medical treatment and medications. Vital signs, Imaging and Laboratory Work was monitored daily. All consults recommendations were followed as provided. There were no complaints or new complaints upon discharge, all questions and concerns were answered. Patient was advised to return to the ER or call 911 if any headaches, dizziness, shortness of breath, chest pain, bleeding, fevers, or worsening of medical condition. Patient/Family was counseled about treatment plan, medications, possible side effects, patient verbalized understanding. All questions were answered to the best of my ability. The patient symptoms improved and they are okay to be DC. Condition at Discharge: Stable Final Diagnosis/Problems List Intractable abdominal pain, s/p EGD: 2-3cm hiatal hernia, erosive esophagitis, mild to moderate gastritis, possible healing zeeshan ulcer GI bleed Gastroenteritis Hypotension DM II & Hyperglycemia Discharge Disposition: Home Discharge Instruct/Medications Diet: Regular Activity: No Restrictions, As Tolerated Follow Up/Referral: pcp 1 week Gasyroenterology Medications: Protonix 40 mg twice a day Carafate 4 x a day Discharge Statement: "Patient was advised to return to the ER or call 911 if any headaches, dizziness, shortness of breath, chest pain, abdominal pain, bleeding, fevers, or worsening of medical condition. Patient was counseled about treatment plan, medications, possible side effects, patientverbalized understanding. All questions were answered to the best of my ability. This discharge took greater then 30 minutes in planning, reviewing documentation, counseling the patient, and discussing with other team members." ASSESSMENT ASSESSMENT Assessment Intractable abdominal pain, s/p EGD: 2-3cm hiatal hernia, erosive esophagitis, mild to moderate gastritis, possible healing zeeshan ulcer BLANCA BAE NP Jul 31, 2024 12:10
== END 2024-07-31 15:00 | disposition home or self-care (01) | DRG 391 ==
LOC: ER 08:43 → TELE 13:31 → TELE-WESTW 22:36
PROVIDERS: ADMIT Nurse Practitioner; ATTEND Nurse Practitioner
PROC: 0DB68ZX Excision of Stomach, Via Natural or Artificial Opening Endoscopic, Diagnostic (ICD-10-PCS; 2024-07-31)
PROC: 0DB48ZX Excision of Esophagogastric Junction, Via Natural or Artificial Opening Endoscopic, Diagnostic (ICD-10-PCS; 2024-07-31)
PROC: 0DB98ZX Excision of Duodenum, Via Natural or Artificial Opening Endoscopic, Diagnostic (ICD-10-PCS; principal; 2024-07-31 10:36)
DX: K52.9 Noninfective gastroenteritis and colitis, unspecified (principal); K22.11 Ulcer of esophagus with bleeding; K29.71 Gastritis, unspecified, with bleeding; K25.4 Chronic or unspecified gastric ulcer with hemorrhage; E11.65 Type 2 diabetes mellitus with hyperglycemia; I95.9 Hypotension, unspecified; K44.9 Diaphragmatic hernia without obstruction or gangrene; I10 Essential (primary) hypertension; K21.9 Gastro-esophageal reflux disease without esophagitis; E78.5 Hyperlipidemia, unspecified; Z87.19 Personal history of other diseases of the digestive system; Z79.82 Long term (current) use of aspirin; Z79.899 Other long term (current) drug therapy
CPT/HCPCS: 36415; 70450; 71045; 80048; 80053; 81001; 82270; 82607; 82962; 83036; 83540; 83550; 85025; 85048; 85610; 85730; 86850; 86900; 86901; 87045; 87427; 99291; G0378; J2250; J2405; J2470